=== PATIENT | female | born 1995 | race Caucasian/White ===

== ENCOUNTER 2018-06-08 10:34 | Emergency (ER) | payer MEDICAID ==
[~2018-06-08] VITALS: Ht 157.5 cm; Wt 98.3 kg
[2018-06-08 11:52] LABS: URINE HCG NEGATIVE (NEG)
[2018-06-08 11:54] LABS: CLARITY,URINE CLEAR (Clear); COLOR,URINE YELLOW (Yellow); GLUCOSE, URINE NEGATIVE (Neg); KETONES,URINE NEGATIVE (Neg); LEUKOCYTE ESTERASE ,URINE TRACE (Neg); NITRITES, URINE NEGATIVE (Neg); OCCULT BLOOD,URINE NEGATIVE (Neg); PROTEIN,URINE NEGATIVE (Neg); UA COLLECTION TYPE CLN CATCH MIDSTREAM; UROBILINOGEN,URINE 0.2 E.U/dL (0.2-1.0)
[2018-06-08 12:00] LABS: BACTERIA,URINE FEW /HPF (Neg); MUCUS STRANDS FEW /LPF (Neg); RBC,URINE 0-2 /HPF (0-2); SQUAMOUS EPITHELIAL CELL,UR MODERATE /LPF (FEW); WBC,URINE 0-4 /HPF (0-4)
[2018-06-08 12:21] LABS: BASOPHILS % (AUTO) 0.4 % (0-1); EOSINOPHILS # (AUTO) 0.1 X10'3 (0-0.9); EOSINOPHILS % (AUTO) 1.3 % (0-6); HEMATOCRIT 42.8 % (35.0-45.0); HEMOGLOBIN 13.4 g/dl (12.0-16.0); LYMPHOCYTES # (AUTO) 2.2 X10'3 (1.1-4.8); LYMPHOCYTES % (AUTO) 25.1 % (21-51); MEAN CORPUSCULAR HEMOGLOBIN 25.9 PG (27.0-31.0); MEAN CORPUSCULAR HGB CONC 31.4 % (33.0-36.5); MEAN CORPUSCULAR VOLUME 82.6 FL (78-98); MEAN PLATELET VOLUME 8.4 FL (7.4-10.4); MONOCYTES # (AUTO) 0.4 X10'3 (0-0.9); NEUTROPHILS # (AUTO) 6.2 X10'3 (1.8-7.7); NEUTROPHILS % (AUTO) 68.2 % (42-75); PLATELET COUNT 360 X10'3 (140-440); RED BLOOD COUNT 5.19 X10'6 (4.20-5.60); RED CELL DISTRIBUTION WIDTH 13.4 % (11.5-14.5); WHITE BLOOD COUNT 8.9 X10'3 (4.5-11.0)
[2018-06-08] MEDS ORDERED: LIDOcaine Viscous 15ml cup PO ONE (12:30)
[2018-06-08] MEDS ORDERED: mag hydrox/Alum hydrox/simeth 30ml oral suspension PO ONE (12:30)
[2018-06-08] MEDS ORDERED: pantoprazole 40mg Tablet.DR PO ONE (12:30)
[2018-06-08] MEDS ORDERED: phenobarb/hyoscy/atropine/scop (Donnatal) 16.2mg tablet PO PRN (12:30)
[2018-06-08 12:33] LABS: PROTHROMBIN TIME 10.2 SECONDS (9.0-12.0)
[2018-06-08 12:35] LABS: ALANINE AMINOTRANSFERASE 23 U/L (12-78); ALBUMIN 3.6 G/DL (3.4-5.0); ALBUMIN/GLOBULIN RATIO 0.9 (1.1-1.5); ALKALINE PHOSPHATASE 86 IU/L (20-180); ANION GAP 9 (8-16); ASPARTATE AMINO TRANSFERASE 15 U/L (10-37); BILIRUBIN,TOTAL 0.2 MG/DL (0.1-1.0); BLOOD UREA NITROGEN 7 MG/DL (7-18); BUN/CREATININE RATIO 9.5 (6.6-38.0); CALCIUM 8.8 MG/DL (8.5-10.1); CHLORIDE 103 MMOL/L (99-107); CREATININE 0.74 MG/DL (0.40-0.90); GLUCOSE 89 MG/DL (70-104); SODIUM 138 MMOL/L (135-145); TOTAL CARBON DIOXIDE 25.9 MMOL/L (24-32); TOTAL PROTEIN 7.8 G/DL (6.4-8.2); eGFR > 90 ML/MIN
[2018-06-08] MEDS ORDERED: ONDA8TAB13 PO (13:17)
[2018-06-08] MEDS ORDERED: PANT-47 PO (13:17)
[2018-06-08 13:35] VITALS: BP 114/65
== END 2018-06-08 13:37 | disposition home or self-care (01) ==
LOC: ER 10:38
DX: R10.13 Epigastric pain (principal); R11.2 Nausea with vomiting, unspecified; R42 Dizziness and giddiness; Z79.899 Other long term (current) drug therapy
CPT/HCPCS: 36415; 80053; 81001; 81025; 85025; 85610; 87088; 99284

== ENCOUNTER 2025-02-04 10:31 | Emergency (ER) | payer MEDICAID ==
[~2025-02-04] VITALS: Ht 157.5 cm; Wt 126.8 kg
[~2025-02-04 10:31] MED LIST: ONDA-245 PO; PANT-47 PO
[2025-02-04 10:54] VITALS: BP 142/92; PULSE 80; RESP 16; TEMP 97.9; O2SAT 99
[2025-02-04 12:11] LABS: URINE HCG NEGATIVE (NEG)
--- NOTE | 2025-02-04 12:44 | Physician Documentation ---
History of Present Illness General Chief Complaint: See Chief Complaint Stated Complaint: PREG TEST Time Seen by MD: 11:37 Primary Medical Doctor: [facility] History of Present Illness Initial Comments This is a 29-year-old female who presents with concern for possible as it has been six weeks since her last menstrual period, patient reports that she has taken several home test with some being positive an something negative. Patient is requesting test. Patient reports no other acute symptoms or concerns. Medication Reconciliation Allergies: Coded Allergies: No Known Allergies (Unverified , 06/08/18) Scheduled Pantoprazole Sodium (PROTONIX tablet), 1 TAB PO DAILY Scheduled PRN Ondansetron 8mg ODT (Ondansetron Odt), 1 TAB PO TID PRN for nausea/vomiting Past Medical History Past Medical History: No Pertinent History Past Surgical History: noncontributory Alcohol Use: None Drug Use: none Lives In: Home Review of Systems ROS As stated above in the HPI, otherwise all systems are reviewed and negative. Physical Exam Physical Exam Vital Signs: Temperature: 97.9, Source: Oral, Heart Rate: 80, Respiratory Rate: 16, BP: 142/92, Pulse Oximetry: 99, Weight: 126.800 Oxygen Flow Rate: 0 Physical Exam VITALS: Reviewed and as above. GENERAL: Alert, nontoxic appearing, no apparent distress. RESPIRATORY: No increased work of breathing, no respiratory distress, speaking in full clear sentences Progress Results/Orders Results/Orders Completed Orders - ERMIAS MONGE [employer]ISTRATOR Hcg, Ur Ql (02/04/25 11:15) Vital Signs 02/04/25 10:54 Temp 97.9 Pulse 80 Resp 16 B/P (MAP) 142/92 Pulse Ox 99 O2 Flow Rate 0 Laboratory Tests Test 02/04/25 11:40 Urine HCG, Qualitative Negative Medical Decision Making Findings This 29-year-old who presented due to no menstrual period for six weeks, patient concerned due to inconsistent home tests, urine hCG test negative emergency department. Patient advised to follow up primary care provider. Patient reported no other acute symptoms or concerns in his appropriate for outpatient follow up. Patient provided return to care precautions which she verbalized understanding of. Differential Diagnosis , ectopic , irregular menstrual periods, polycystic ovarian syndrome Departure Time of Disposition: 12:45 Disposition: 01 HOME / SELF CARE / HOMELESS Impression: Primary Impression: Menstrual period late Additional Impression: Encounter for test, result negative Condition: Stable Additional Instructions: Your test was negative today. Please follow up with your primary care provider in the next few days as you may need a referral to a specialist if symptoms continue. Please return to the emergency department for any new or worsening concerning symptoms. Referrals: NO PRIMARY CARE PROVIDER (PCP) Education Educated: Patient Educated regarding: diagnosis, treatment, prognosis, need for follow up Signature Scribe Signature: No scribe Attestation: The note accurately reflects work and decisions made by me.CHRISTINA Hernandez 02/04/25 21:12 ERMIAS MONGE Feb 04, 2025 12:44
== END 2025-02-04 12:53 | disposition home or self-care (01) ==
LOC: ER 10:32
DX: N91.0 Primary amenorrhea (principal)
CPT/HCPCS: 81025; 99283